=== PATIENT | female | born 1980 | race Caucasian/White ===

== ENCOUNTER 2020-12-21 21:27 | Inpatient (IN) | payer OTHER, SELFPAY ==
[~2020-12-21] VITALS: Ht 162.6 cm; Wt 71.2 kg
[2020-12-21 21:38] VITALS: BP_SYST 102
[2020-12-21] MEDS ORDERED: MORPHINE 4 MG INJ. 4 MG/ML VIAL IVP PRN (22:15)
[2020-12-21] MEDS ORDERED: NALOXONE HCL 0.4 MG/ML AMP (NARCAN) IVP PRN (22:15)
[2020-12-21] MEDS ORDERED: LEVOFLOXACIN IN DEXTROSE 5 % 100 ML IV ONE (23:45)
[2020-12-22] MEDS ORDERED: LEVOFLOXACIN IN DEXTROSE 5 % 100 ML IV ONE (00:19)
[2020-12-22 01:00] VITALS: BP_SYST 112
[2020-12-22] MEDS: metroNIDAZOLE 500 MG TABLET PO SCH ×3 (01:05→21:03)
[2020-12-22] MEDS: D5NS 1,000 ML IV SCH ×3 (01:06→21:19)
[2020-12-22 07:01] LABS: BASOPHILS % (AUTO) 0.4 % (0.0-2.0); EOSINOPHILS % (AUTO) 0.8 % (0.0-4.0); HEMATOCRIT 36.3 % (36-48); HEMOGLOBIN 12.3 g/dL (12.0-16.0); LYMPHOCYTES # (AUTO) 0.5 K/uL (1.0-5.5); LYMPHOCYTES % (AUTO) 13.7 % (20.5-51.5); MEAN CORPUSCULAR HEMOGLOBIN 33 pg (27-31); MEAN CORPUSCULAR HGB CONC 34 % (32-36); MEAN CORPUSCULAR VOLUME 97 fL (79.0-98.0); MONOCYTES # (AUTO) 0.3 K/uL (0.0-1.0); MONOCYTES % (AUTO) 8.3 % (1.7-9.3); NEUTROPHILS % (AUTO) 76.8 % (40.0-70.0); PLATELET COUNT (AUTO) 155 K/uL (130-430); RED BLOOD CELL COUNT(AUTO) 3.75 MIL/uL (4.2-6.2); RED CELL DISTRIBUTION WIDTH 12.9 % (9.0-15.0)
[2020-12-22 08:04] LABS: ALBUMIN 3.6 g/dL (3.4-4.8); CALCIUM 8.9 mg/dL (8.4-11.0); CREATININE 0.67 mg/dL (0.55-1.30); POTASSIUM 3.7 mmol/L (3.5-5.1); TOTAL BILIRUBIN 2.4 mg/dL (0.0-1.0)
[2020-12-22 08:59] VITALS: BP_SYST 132
[2020-12-22 12:39] VITALS: BP_SYST 122
[2020-12-22] MEDS: ONDANSETRON HCL 4 MG/2 ML VIAL IVP PRN ×2 (15:56→23:07)
[2020-12-22] MEDS: MORPHINE 2 MG/ML INJ. SYRINGE IVP PRN (15:58)
[2020-12-22 16:20] VITALS: BP_SYST 129
[2020-12-22 17:40] LABS: BILIRUBIN,URINE 2+ (NEGATIVE); BLOOD, URINE 1+ (NEGATIVE); CLARITY/URINE CLOUDY (CLEAR); COLOR,URINE YELLOW (YELLOW); GLUCOSE,URINE NEGATIVE (NEGATIVE); KETONES,URINE 3+ (NEGATIVE); LEUKOCYTE ESTERASE ,URINE 2+ (NEGATIVE); NITRITE, URINE NEGATIVE (NEGATIVE); PROTEIN URINE NEGATIVE (NEGATIVE)
[2020-12-22 19:06] LABS: BACTERIA,URINE FEW /HPF (None Seen); WBC,URINE 50-80 /HPF (0-3)
[2020-12-22 19:07] LABS: MUCUS,URINE None Seen /LPF (None Seen)
[2020-12-22] MEDS ORDERED: NALOXONE HCL 0.4 MG/ML AMP (NARCAN) IVP PRN (19:15)
[2020-12-22] MEDS ORDERED: HYDROmorphone 1 MG/ML INJ. CARTRIDGE IVP PRN (19:15)
[2020-12-22 20:00] VITALS: BP_SYST 125; BP_SYST 128
[2020-12-22] MEDS ORDERED: LEVOFLOXACIN IN DEXTROSE 5 % 100 ML IV SCH (21:00)
[2020-12-23] VITALS: BP_SYST 128
[2020-12-23] MEDS: metroNIDAZOLE 500 MG TABLET PO SCH (06:36)
[2020-12-23 06:41] VITALS: BP_SYST 130
[2020-12-23 06:58] LABS: BASOPHILS % (AUTO) 0.3 % (0.0-2.0); EOSINOPHILS % (AUTO) 0.2 % (0.0-4.0); HEMATOCRIT 38.2 % (36-48); HEMOGLOBIN 13.1 g/dL (12.0-16.0); LYMPHOCYTES # (AUTO) 0.5 K/uL (1.0-5.5); LYMPHOCYTES % (AUTO) 10.6 % (20.5-51.5); MEAN CORPUSCULAR HEMOGLOBIN 32 pg (27-31); MEAN CORPUSCULAR HGB CONC 34 % (32-36); MEAN CORPUSCULAR VOLUME 94 fL (79.0-98.0); MONOCYTES # (AUTO) 0.4 K/uL (0.0-1.0); MONOCYTES % (AUTO) 8.6 % (1.7-9.3); NEUTROPHILS % (AUTO) 80.3 % (40.0-70.0); PLATELET COUNT (AUTO) 158 K/uL (130-430); RED BLOOD CELL COUNT(AUTO) 4.06 MIL/uL (4.2-6.2); RED CELL DISTRIBUTION WIDTH 12.7 % (9.0-15.0)
[2020-12-23 07:41] LABS: PROTHROMBIN TIME 10.8 SECS (9.5-12.5)
[2020-12-23 07:55] LABS: ALBUMIN 3.4 g/dL (3.4-4.8); CALCIUM 8.9 mg/dL (8.4-11.0); CREATININE 0.62 mg/dL (0.55-1.30); POTASSIUM 4.5 mmol/L (3.5-5.1); TOTAL BILIRUBIN 1.5 mg/dL (0.0-1.0)
[2020-12-23 08:00] VITALS: BP_SYST 109
[2020-12-23] MEDS ORDERED: HYDROcodone/ACETAMIN 5-325 MG TAB (NORCO/ VICODIN) PO PRN (08:30)
[2020-12-23] MEDS ORDERED: METOCLOPRAMIDE HCL 10 MG/2 ML VIAL IVP PRN (09:00)
[2020-12-23] MEDS ORDERED: HYDROmorphone 1 MG/ML INJ. CARTRIDGE IVP PRN (09:00)
[2020-12-23] MEDS ORDERED: NALOXONE HCL 0.4 MG/ML AMP (NARCAN) IVP PRN (09:00)
[2020-12-23] MEDS ORDERED: KETOROLAC TROMETHAMINE 30 MG VIAL IVP PRN (09:00)
[2020-12-23] MEDS ORDERED: SUCCINYLCHOLINE CHLORIDE 20 MG/ML(QUELICIN) ONE (10:10)
[2020-12-23] MEDS ORDERED: NS 1000 ML IV.SOLN IV ONE (10:10)
[2020-12-23] MEDS ORDERED: LR 1,000 ML IV.SOLN IV ONE (10:10)
[2020-12-23] MEDS ORDERED: fentaNYL CITRATE/PF 100 MCG/2 ML AMP ONE (10:10)
[2020-12-23] MEDS ORDERED: PHENYLEPHRINE HCL 10 MG/ML VIAL (NEOSYNEPHRINE) ONE (10:10)
[2020-12-23] MEDS ORDERED: ROCURONIUM BROMIDE 10 MG/ML (ZEMURON) ONE (10:10)
[2020-12-23] MEDS ORDERED: GLYCOPYRROLATE 0.2 MG/ML VIAL ONE (10:10)
[2020-12-23] MEDS ORDERED: PROPOFOL 200MG/ 20ML VIAL (DIPRIVAN) IV ONE (10:10)
[2020-12-23] MEDS ORDERED: BUPIVACAINE /PF 0.25% 30 ML VIAL INJ ONE (10:10)
[2020-12-23] MEDS ORDERED: MIDAZOLAM HCL 5 MG/ML VIAL (VERSED) IV ONE (10:10)
[2020-12-23] MEDS ORDERED: LIDOCAINE/EPI 1% 1:100000 20 ML VIAL INJ ONE (10:10)
[2020-12-23] MEDS ORDERED: ONDANSETRON HCL 4 MG/2 ML VIAL ONE (10:10)
[2020-12-23] MEDS ORDERED: NS IRRIG SOLN 1000 ML IR ONE (10:10)
[2020-12-23] MEDS ORDERED: SEVOFLURANE 15 MIN GAS INH ONE (10:10)
[2020-12-23] MEDS ORDERED: KETOROLAC TROMETHAMINE 30 MG VIAL ONE (10:21)
[2020-12-23] MEDS ORDERED: HYDROmorphone 1 MG/ML INJ. CARTRIDGE ONE (10:32)
[2020-12-23 11:22] VITALS: BP_SYST 106
[2020-12-23 12:00] VITALS: BP_SYST 101
[2020-12-23] MEDS: D5NS 1,000 ML IV SCH (12:06)
[2020-12-23] MEDS: MORPHINE 2 MG/ML INJ. SYRINGE IVP PRN (12:16)
[2020-12-23] MEDS: ONDANSETRON HCL 4 MG/2 ML VIAL IVP PRN (12:26)
[2020-12-23 17:12] VITALS: BP_SYST 95
== END 2020-12-23 18:05 | disposition home or self-care (01) | DRG 418 ==
LOC: SMU 21:27
PROVIDERS: ADMIT Internal Medicine Hospice and Palliative Medicine; ATTEND Internal Medicine Hospice and Palliative Medicine
PROC: BF121ZZ Fluoroscopy of Gallbladder using Low Osmolar Contrast (ICD-10-PCS; 2020-12-23)
PROC: 0FT44ZZ Resection of Gallbladder, Percutaneous Endoscopic Approach (ICD-10-PCS; principal; 2020-12-23 09:02)
DX: K80.40 Calculus of bile duct with cholecystitis, unspecified, without obstruction (principal); C95.91 Leukemia, unspecified, in remission; Z20.822 Contact with and (suspected) exposure to COVID-19; E66.9 Obesity, unspecified; Z68.26 Body mass index [BMI] 26.0-26.9, adult
CPT/HCPCS: 36415; 74181; 76000; 80053; 81000; 83690; 84702; 85025; 85610-TC; 85730-TC; 86886; 86900; 86901; 87081; 87086; 88304; C1727; J0330; J1170; J1885; J1956; J2250; J2270; J2370; J2405; J2704; J3010; J3490; J7030; J7120; Q9967